=== PATIENT | female | born 1965 | race Caucasian/White ===

== ENCOUNTER 2017-11-23 16:23 | Emergency (ER) | payer OTHER ==
[~2017-11-23] VITALS: Ht 160 cm; Wt 79.4 kg
[~2017-11-23 16:23] MED LIST: DICLOFENAC SODI50 MG PO; NORFLEX100MG PO
== END 2017-11-23 17:44 | disposition home or self-care (01) ==
LOC: ER 16:23
DX: S61.210A Laceration without foreign body of right index finger without damage to nail, initial encounter (principal); W45.8XXA Other foreign body or object entering through skin, initial encounter; Y93.89 Activity, other specified; Y92.69 Other specified industrial and construction area as the place of occurrence of the external cause; Y99.8 Other external cause status

== ENCOUNTER 2018-11-13 20:25 | Emergency (ER) | payer OTHER ==
[~2018-11-13] VITALS: Ht 160 cm; Wt 68.0 kg
[2018-11-13] MEDS ORDERED: DICLOFENAC SODI50 MG PO (22:39)
[2018-11-13] MEDS ORDERED: ORPHENADRINE C100 MG PO (22:39)
== END 2018-11-13 22:43 | disposition home or self-care (01) ==
LOC: ER 20:25
DX: S63.622A Sprain of interphalangeal joint of left thumb, initial encounter (principal); X50.3XXA Overexertion from repetitive movements, initial encounter; Y93.89 Activity, other specified; Y92.89 Other specified places as the place of occurrence of the external cause; Y99.8 Other external cause status

== ENCOUNTER 2019-04-12 12:51 | Emergency (ER) | payer OTHER ==
[~2019-04-12] VITALS: Ht 160 cm; Wt 71.2 kg
[~2019-04-12 12:51] MED LIST changes: +ORPHENADRINE C100 MG PO
== END 2019-04-12 17:11 | disposition home or self-care (01) ==
LOC: ER 12:51
DX: S39.012A Strain of muscle, fascia and tendon of lower back, initial encounter (principal); W18.39XA Other fall on same level, initial encounter; Y93.89 Activity, other specified; Y92.69 Other specified industrial and construction area as the place of occurrence of the external cause; Y99.8 Other external cause status

== ENCOUNTER 2019-12-09 10:05 | Emergency (ER) | payer OTHER ==
[~2019-12-09] VITALS: Ht 160 cm; Wt 72.6 kg
[2019-12-09] MEDS ORDERED: ZITHROMAX500 MG PO (14:47)
[2019-12-09] MEDS ORDERED: MEDROLPACK PO (14:47)
[2019-12-09] MEDS ORDERED: TUSNEL LIQUID178 ML PO (14:47)
[2019-12-09] MEDS ORDERED: DOLOGEN CAPLET1 EACH PO (14:48)
== END 2019-12-09 15:44 | disposition home or self-care (01) ==
LOC: ER 10:05
DX: U07.1 COVID-19 (principal); B34.9 Viral infection, unspecified; R51 Headache; R05 Cough; R53.81 Other malaise

== ENCOUNTER 2021-04-24 10:07 | Emergency (ER) | payer OTHER ==
[~2021-04-24] VITALS: Ht 157.5 cm; Wt 76.2 kg
[~2021-04-24 10:07] MED LIST changes: +DOLOGEN CAPLET1 EACH PO; +MEDROLPACK PO; +TUSNEL LIQUID178 ML PO; +ZITHROMAX500 MG PO
[2021-04-24] MEDS ORDERED: NORFLEX100MG PO (13:46)
[2021-04-24] MEDS ORDERED: KETO10TA2 PO (13:46)
== END 2021-04-24 13:55 | disposition home or self-care (01) ==
LOC: ER 10:07
DX: S30.0XXA Contusion of lower back and pelvis, initial encounter (principal); S80.01XA Contusion of right knee, initial encounter; W18.39XA Other fall on same level, initial encounter; Y93.89 Activity, other specified; Y92.69 Other specified industrial and construction area as the place of occurrence of the external cause; Y99.8 Other external cause status